=== PATIENT | female | born 1980 | race Caucasian/White ===

== ENCOUNTER 2017-07-14 02:44 | Emergency (ER) | payer SELFPAY ==
[2017-07-14] MEDS ORDERED: Doxycycline 100 MG Cap PO ONE (03:19)
--- NOTE | 2017-07-14 03:20 | EDM.PDOC ---
ED HPI GENERAL MEDICAL PROBLEM - General Chief Complaint: Bite:Animal, Insect Stated Complaint: poss spider bite Time Seen by Provider: 07/14/17 03:01 Source of Information: Reports: Patient History Limitations: Reports: No Limitations - History of Present Illness INITIAL COMMENTS - FREE TEXT/NARRATIVE: The patient presents with pain, redness and swelling to the right lower leg. She thinks she may have gotten bit by a bug or spider a couple days ago. She has no fever or chills. She has no other symptoms. Onset: Gradual Duration: Day(s): (2) Location: Reports: Upper Extremity, Right Quality: Reports: Sharp Severity: Moderate Improves with: Reports: None Worsens with: Reports: None Associated Symptoms: Reports: No Other Symptoms Right Feet Pain Score (Numeric/FACES): 6 - Related Data Allergies Allergy/AdvReac Type Severity Reaction Status Date / Time No Known Allergies Allergy Verified 07/14/17 02:56 Home Meds: Home Meds Doxycycline [Vibramycin] 100 mg PO BID #20 cap 07/14/17 [Rx] Hydrocodone/Acetaminophen [Hydrocodon-Acetaminophen 5-325] 1 - 2 each PO Q6HR PRN #10 tablet 07/14/17 [Rx] Past Medical History - Past Health History Medical/Surgical History: Denies Medical/Surgical History HEENT History: Reports: Impaired Vision Other OB/BYN History: Ovarian cyst Other Musculoskeletal History: "bad knees" Psychiatric History: Reports: Addiction Social & Family History - Family History Family Medical History: Noncontributory - Tobacco Use Smoking Status *Q: Current Every Day Smoker Years of Tobacco use: 25 Packs/Tins Daily: 0.7 - Recreational Drug Use Recreational Drug Use: Yes Drug Use in Last 12 Months: Yes Recreational Drug Type: Reports: Methamphetamine ED ROS GENERAL - Review of Systems Review Of Systems: See Below Constitutional: Reports: No Symptoms HEENT: Reports: No Symptoms Respiratory: Reports: No Symptoms Cardiovascular: Reports: No Symptoms Endocrine: Reports: No Symptoms GI/Abdominal: Reports: No Symptoms : Reports: No Symptoms Musculoskeletal: Reports: Leg Pain ED EXAM, ANIMAL BITE - Physical Exam Exam: See Below Exam Limited By: No Limitations General Appearance: Alert, No Apparent Distress Ears: Normal External Exam Nose: Normal Inspection Head: Atraumatic, Normocephalic Neck: Normal Inspection Respiratory/Chest: No Respiratory Distress Extremities: Other (Erythema, edema and pain upon palpation to the right lower leg. Good sensation and pulses distally.) Course - Vital Signs Last Recorded V/S: Last Vital Signs Temp 98.0 F 07/14/17 02:54 Pulse 88 07/14/17 02:54 Resp 18 07/14/17 02:54 BP 132/78 07/14/17 02:54 Pulse Ox 100 07/14/17 02:54 - Re-Assessments/Exams Free Text/Narrative Re-Assessment/Exam: 07/14/17 03:17 I will give her a dose of doxycycline here and a prescription for more. Departure - Departure Time of Disposition: 03:20 Disposition: Home, Self-Care 01 Condition: Good Clinical Impression: Cellulitis Qualifiers: Site of cellulitis: extremity Site of cellulitis of extremity: lower extremity Laterality: right Qualified Code(s): L03.115 - Cellulitis of right lower limb - Discharge Information Prescriptions: Hydrocodone/Acetaminophen [Hydrocodon-Acetaminophen 5-325] 1 - 2 each PO Q6HR PRN #10 tablet PRN Reason: Pain Doxycycline [Vibramycin] 100 mg PO BID #20 cap Referrals: PCP,None [Primary Care Provider] - Bushra Morocho PA [Physician Logistics Engineer] - Additional Instructions: Take the doxycycline 2 times per day for 10 days. Elevate your leg as much as you can for 2 days. Take the hydrocodone as needed for pain. Put warm compresses on your leg 2 to 3 times per day. Please return if you are worse.
== END 2017-07-14 03:28 | disposition home or self-care (01) ==
LOC: JD.ED 02:44
DX: L03.115 Cellulitis of right lower limb (principal); F17.210 Nicotine dependence, cigarettes, uncomplicated
CPT/HCPCS: 99283; A9270

== ENCOUNTER 2018-04-19 12:11 | Emergency (ER) | payer SELFPAY ==
[2018-04-19] MEDS ORDERED: Lidocaine 1% 10 ML MDV INJECT ONE (12:33)
--- NOTE | 2018-04-19 12:41 | EDM.PDOC ---
ED HPI GENERAL MEDICAL PROBLEM - General Chief Complaint: Laceration Stated Complaint: FINGER LAC Time Seen by Provider: 04/19/18 12:20 Source of Information: Reports: Patient, RN Notes Reviewed History Limitations: Reports: No Limitations - History of Present Illness INITIAL COMMENTS - FREE TEXT/NARRATIVE: Patient is a 37-year-old female who presents to the ED for evaluation of a laceration to her left pointer finger. She states that she was cutting vegetables at home when she accidentally sliced her finger. She states this was approximately 15 minutes before coming to the ER. She states that she is right-handed. She is up-to-date on her tetanus booster. She does not believe that she cut the nail at all. The laceration is around 1.5 cm in length and is curvilinear. She does not have any med allergies that she is aware of. Bleeding was controlled at time of initial presentation. left 2nd finger Pain Score (Numeric/FACES): 9 - Related Data Allergies Allergy/AdvReac Type Severity Reaction Status Date / Time No Known Allergies Allergy Verified 04/19/18 12:23 Home Meds: Home Meds . 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 Skin: Reports: Wound (SEE HPI) Neurological: Denies: Numbness, Tingling ED EXAM, SKIN/RASH Exam: See Below Text/Narrative:: exam limited to Left upper extremity Exam Limited By: No Limitations General Appearance: Alert, WD/WN, No Apparent Distress Ears: Normal External Exam Nose: Normal Inspection Throat/Mouth: Normal Inspection Head: Atraumatic Neck: Normal Inspection Respiratory/Chest: No Respiratory Distress, Lungs Clear, Normal Breath Sounds, No Accessory Muscle Use, Chest Non-Tender Cardiovascular: Normal Peripheral Pulses, Regular Rate, Rhythm, No Murmur Extremities: Normal Inspection, Normal Capillary Refill Neurological: Alert, Oriented, Normal Cognition, No Motor/Sensory Deficits Psychiatric: Normal Affect, Normal Mood Skin: Warm, Dry, Wound/Incision (1.5 cm curvilinear laceration to the distal, lateral left pointer finger. This is over the finger pad.) Location, Skin: Upper Extremity, Left, Palms (1.5 cm curvilinear laceration to the lateral aspect of left pointer finger.) ED SKIN PROCEDURES - Laceration/Wound Repair Left Lateral Distal Digit - 2nd (Index) Lac/Wound length In cm: 1.5 Appearance: Superficial, Linear (Curvilinear), Clean Distal NVT: Neuro & Vascular Intact Anesthetic Type: Local Local Anesthesia - Lidocaine (Xylocaine): 1% Plain Local Anesthetic Volume: 5cc Skin Prep: Chlorhexidine (Hibiciens), Saline Saline Irrigation (cc's): 250 (copious) Exploration/Debridement/Repair: Wound Explored, In a Bloodless Field, Explored to Base, No Foreign Material Found Closed with: Sutures Suture Size: other (5.0) # of Sutures: 7 Suture Type: Prolene, Interrupted, Simple Sterile Dressing Applied: Nurse Tetanus Status Addressed: Yes Complications: No Course - Vital Signs Last Recorded V/S: Last Vital Signs Temp 98.1 F 04/19/18 12:20 Pulse 82 04/19/18 12:20 Resp 18 04/19/18 12:20 BP 122/78 04/19/18 12:20 Pulse Ox 100 04/19/18 12:20 - Orders/Labs/Meds Meds: Medications Discontinued Medications Generic Name Dose Route Start Last Admin Trade Name Joel PRN Reason Stop Dose Admin Lidocaine HCl 10 ml 04/19/18 12:33 04/19/18 12:44 Xylocaine 1% INJECT 04/19/18 12:34 10 ml ONETIME ONE Administration - Re-Assessments/Exams Free Text/Narrative Re-Assessment/Exam: 04/19/18 12:44 Patient presents to the ED for evaluation of a laceration to her left pointer finger. Will need to be closed with sutures, I have ordered a lidocaine for repair. Will use 5.0, this did not appear to have caught the fingernail at all. She is neurovascularly intact. Departure - Departure Time of Disposition: 13:12 Disposition: Home, Self-Care 01 Condition: Good, Fair Clinical Impression: Laceration of left index finger Qualifiers: Encounter type: initial encounter Damage to nail status: without damage Foreign body presence: without foreign body Qualified Code(s): S61.211A - Laceration without foreign body of left index finger without damage to nail, initial encounter - Discharge Information *PRESCRIPTION DRUG MONITORING PROGRAM REVIEWED*: No *COPY OF PRESCRIPTION DRUG MONITORING REPORT IN PATIENT BERNY: No Instructions: Stitches, Keith, or Adhesive Wound Closure, [id number] Referrals: PCP,None [Primary Care Provider] - Forms: ED Department Discharge, ED Return to Work/School Form Additional Instructions: You have been evaluated in the ED for your laceration. Sutures will need to stay in for 10 days (04/29/18). You may return to the ED or clinic for removal. Please keep this area clean and dry, you may cleanse with regular soap and water. No vigorous scrubbing. If your job requires you to have a hand submersed in water, recommend having it bandaged and gloved at all times. Please return to ED if your symptoms change or worsen.
== END 2018-04-19 13:28 | disposition home or self-care (01) ==
LOC: JD.ED 12:11
DX: S61.211A Laceration without foreign body of left index finger without damage to nail, initial encounter (principal); W45.8XXA Other foreign body or object entering through skin, initial encounter
CPT/HCPCS: 12001; 99282; J2001

== ENCOUNTER 2018-11-16 06:15 | Emergency (ER) | payer SELFPAY ==
[2018-11-16] MEDS ORDERED: Sodium Chloride 0.9% 10 ML Syringe FLUSH PRN (06:35)
[2018-11-16] MEDS ORDERED: HYDROmorphone 0.5 MG/0.5 ML Syringe IVPUSH ONE ×2 (06:36→07:04)
[2018-11-16] MEDS ORDERED: Ondansetron 4 MG/2 ML SDV IVPUSH ONE (06:36)
[2018-11-16] MEDS ORDERED: Sodium Chloride 0.9% 1,000 ML IV SCH (06:45)
--- NOTE | 2018-11-16 07:11 | EDM.PDOC ---
<Reji Torrez Madan - Last Filed: 11/16/18 07:27> ED HPI GENERAL MEDICAL PROBLEM - General Chief Complaint: Abdominal Pain Stated Complaint: STOMACH PAIN Time Seen by Provider: 11/16/18 06:30 Source of Information: Reports: Patient, RN Notes Reviewed - History of Present Illness INITIAL COMMENTS - FREE TEXT/NARRATIVE: 38-year-old female comes in with severe right back and flank discomfort. This started about 2 hours ago awakening her from sleep. [place] totally fine yesterday. She's never had anything like this before. The pain does not cross over to the left side. She has had some nausea and vomiting. No fever or chills. No voiding symptomatology. No chest pain or difficulty breathing. Right Abdomen Pain Score (Numeric/FACES): 10 - Related Data Allergies Allergy/AdvReac Type Severity Reaction Status Date / Time No Known Allergies Allergy Verified 11/16/18 06:27 Home Meds: Home Meds Ondansetron [Zofran] 4 mg BUCCAL Q6H PRN #5 tab 11/16/18 [Rx] oxyCODONE HCl/Acetaminophen [Percocet 5-325 mg Tablet] 1 - 2 each PO Q4H PRN # 16 tablet 11/16/18 [Rx] Past Medical History - Past Health History Medical/Surgical History: Denies Medical/Surgical History HEENT History: Reports: Impaired Vision Cardiovascular History: Reports: None Respiratory History: Reports: None Gastrointestinal History: Reports: None Genitourinary History: Reports: None 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 Other Musculoskeletal History: "bad knees" Neurological History: Reports: None Psychiatric History: Reports: Addiction Endocrine/Metabolic History: Reports: None Hematologic History: Reports: None Immunologic History: Reports: None Oncologic (Cancer) History: Reports: None Dermatologic History: Reports: Cellulitis - Infectious Disease History Infectious Disease History: Reports: None - Past Surgical History Head Surgeries/Procedures: Reports: None Social & Family History - Family History Family Medical History: Noncontributory - Tobacco Use Smoking Status *Q: Current Every Day Smoker Years of Tobacco use: 20 Packs/Tins Daily: 0.5 - Caffeine Use Caffeine Use: Reports: Soda - Recreational Drug Use Recreational Drug Use: Yes ED ROS GENERAL - Review of Systems Review Of Systems: See Below Constitutional: Denies: Fever, Chills, Diaphoresis HEENT: Reports: No Symptoms Respiratory: Denies: Shortness of Breath Cardiovascular: Denies: Chest Pain GI/Abdominal: Reports: Abdominal Pain (Right flank), Nausea, Vomiting. Denies: Diarrhea : Reports: No Symptoms Musculoskeletal: Reports: Back Pain (Right-sided) Skin: Reports: No Symptoms Neurological: Reports: No Symptoms ED EXAM, RENAL/ - Physical Exam Exam: See Below General Appearance: Alert, Severe Distress Eye Exam: Bilateral Eye: PERRL Throat/Mouth: Normal Inspection Head: Atraumatic Neck: Supple Respiratory/Chest: No Respiratory Distress, Lungs Clear, Normal Breath Sounds Cardiovascular: Regular Rate, Rhythm GI/Abdominal: Soft, Other (Mild tenderness right flank) Back Exam: CVA Tenderness (R) Extremities: Normal Inspection Neurological: Alert, Oriented, No Motor/Sensory Deficits Skin Exam: Warm, Dry, Normal Color Course - Vital Signs Last Recorded V/S: Last Vital Signs Temp 35.7 C 11/16/18 06:25 Pulse 59 L 11/16/18 06:25 Resp 18 11/16/18 06:25 BP 159/130 H 11/16/18 06:25 Pulse Ox 99 11/16/18 06:25 - Orders/Labs/Meds Orders: Active Orders 24 hr Category Date Time Status Peripheral IV Care [RC] . DIRECTED Care 11/16/18 06:36 Active Ketorolac [Toradol] Med 11/16/18 08:15 Active 30 mg IVPUSH ONETIME Sodium Chloride 0.9% [Normal Saline] 1,000 ml Med 11/16/18 06:45 Active IV ONETIME Sodium Chloride 0.9% [Saline Flush] Med 11/16/18 06:35 Active 10 ml FLUSH ASDIRECTED PRN Peripheral IV Insertion Adult [OM.PC] Stat Oth 11/16/18 06:35 Ordered Medication Orders Sodium Chloride (Normal Saline) 1,000 mls @ 999 mls/hr IV ONETIME CHAUNCEY Last Admin: 11/16/18 06:42 Dose: 999 mls/hr Ketorolac Tromethamine (Toradol) 30 mg IVPUSH ONETIME CHAUNCEY Last Admin: 11/16/18 08:17 Dose: 30 mg Sodium Chloride (Saline Flush) 10 ml FLUSH ASDIRECTED PRN PRN Reason: Keep Vein Open Last Admin: 11/16/18 06:37 Dose: 10 ml Labs: Laboratory Tests 11/16/18 11/16/18 Range/Units 07:45 07:51 Urine Color Yellow (Yellow) Urine Appearance Cloudy H (Clear) Urine pH 5.5 (5.0-8.0) Ur Specific [place] > or = 1.030 (1.005-1.030) Urine Protein 1+ H (Negative) Urine Glucose (UA) Negative (Negative) Urine Ketones Negative (Negative) Urine Occult Blood 1+ H (Negative) Urine Nitrite Negative (Negative) Urine Bilirubin Negative (Negative) Urine Urobilinogen 0.2 (0.2-1.0) Ur Leukocyte Esterase 1+ H (Negative) Urine RBC 10-20 H (0-5) /hpf Urine WBC 20-30 H (0-5) /hpf Ur Epithelial Cells 20-30 H (0-5) /hpf Urine Bacteria Moderate H (FEW) /hpf Urine Mucus Many H (FEW) /hpf Urine Opiates Screen Presumptive positive H (ADDALR=133) Ur Buprenorphine Scrn Negative (CUTOFF=10) Ur Oxycodone Screen Negative (LCW0ZY=200) Urine Methadone Screen Negative (KGXDZJ=975) Ur Propoxyphene Screen Negative (HLZAWD=049) Ur Barbiturates Screen Negative (ZXRAWN=977) Ur Tricyclics Screen Negative (YAQVKT=567) Ur Phencyclidine Scrn Negative (CUTOFF=25) Ur Amphetamine Screen Presumptive positive H (OBUQXG=666) U Methamphetamines Scrn Presumptive positive H (PLLIAC=851) U Benzodiazepines Scrn Negative (XIMFTO=558) U Cocaine Metab Screen Negative (VEDUNE=463) U Marijuana (THC) Screen Negative (CUTOFF=50) Meds: Medications Generic Name Dose Route Start Last Admin Trade Name Freq PRN Reason Stop Dose Admin Sodium Chloride 1,000 mls @ 999 mls/hr 11/16/18 06:45 11/16/18 06:42 Normal Saline IV 999 mls/hr ONETIME CHAUNCEY Administration Ketorolac Tromethamine 30 mg 11/16/18 08:15 11/16/18 08:17 Toradol IVPUSH 30 mg ONETIME CHAUNCEY Administration Sodium Chloride 10 ml 11/16/18 06:35 11/16/18 06:37 Saline Flush FLUSH 10 ml ASDIRECTED PRN Administration Keep Vein Open Discontinued Medications Generic Name Dose Route Start Last Admin Trade Name Freq PRN Reason Stop Dose Admin Hydromorphone HCl 0.5 mg 11/16/18 06:36 11/16/18 06:43 Dilaudid IVPUSH 11/16/18 06:37 0.5 mg ONETIME ONE Administration Hydromorphone HCl 0.5 mg 11/16/18 07:04 11/16/18 07:08 Dilaudid IVPUSH 11/16/18 07:05 0.5 mg ONETIME ONE Administration Hydromorphone HCl 1 mg 11/16/18 08:11 11/16/18 08:16 Dilaudid IVPUSH 11/16/18 08:12 1 mg ONETIME ONE Administration Ondansetron HCl 4 mg 11/16/18 06:36 11/16/18 06:42 Zofran IVPUSH 11/16/18 06:37 4 mg ONETIME ONE Administration - Re-Assessments/Exams Free Text/Narrative Re-Assessment/Exam: 11/16/18 07:27 Change of shift, will transfer care to Dr Monreal. Suspect she will have a stone. Getting her CT at this time. Departure - Departure Disposition: Home, Self-Care 01 Clinical Impression: Renal colic on left side, Flank pain - Discharge Information Prescriptions: Ondansetron [Zofran] 4 mg BUCCAL Q6H PRN #5 tab PRN Reason: nausea or vomiting oxyCODONE HCl/Acetaminophen [Percocet 5-325 mg Tablet] 1 - 2 each PO Q4H PRN # 16 tablet PRN Reason: pain relief. Instructions: Renal Colic, [id number], Kidney Stones, [id number] Referrals: PCP,None [Primary Care Provider] - Forms: ED Department Discharge Additional Instructions: Evaluation the emergency room this morning in regards to acute onset of severe right flank pain that awoke him from sleep. Can confirms this is a kidney stone and it is approximate 1.8 mm and is down close to the urinary bladder. Has been another incident have to go before would enter the bladder which time pain goes away completely. Take plenty of fluids today. Activity as tolerated. Pain medication is to be Percocet tabs 5/325 2 tablets with Zofran 4 mg under the tongue at onset of pain when it returns. When the stone stops moving the pain can go away and never know when his going to come back. Strain the urine until stone is identified to have passed. No other stones were noted in the kidney tissues at this time to be problematic in the future. - My Orders Last 24 Hours: My Active Orders 11/16/18 08:15 Ketorolac [Toradol] 30 mg IVPUSH ONETIME - Assessment/Plan Last 24 Hours: My Active Orders 11/16/18 08:15 Ketorolac [Toradol] 30 mg IVPUSH ONETIME <Zhang Monreal - Last Filed: 11/16/18 09:00> Course - Orders/Labs/Meds Labs: Laboratory Tests 11/16/18 11/16/18 Range/Units 07:45 07:51 Urine Color Yellow (Yellow) Urine Appearance Cloudy H (Clear) Urine pH 5.5 (5.0-8.0) Ur Specific [place] > or = 1.030 (1.005-1.030) Urine Protein 1+ H (Negative) Urine Glucose (UA) Negative (Negative) Urine Ketones Negative (Negative) Urine Occult Blood 1+ H (Negative) Urine Nitrite Negative (Negative) Urine Bilirubin Negative (Negative) Urine Urobilinogen 0.2 (0.2-1.0) Ur Leukocyte Esterase 1+ H (Negative) Urine RBC 10-20 H (0-5) /hpf Urine WBC 20-30 H (0-5) /hpf Ur Epithelial Cells 20-30 H (0-5) /hpf Urine Bacteria Moderate H (FEW) /hpf Urine Mucus Many H (FEW) /hpf Urine Opiates Screen Presumptive positive H (ZJRCTO=022) Ur Buprenorphine Scrn Negative (CUTOFF=10) Ur Oxycodone Screen Negative (THL0IA=402) Urine Methadone Screen Negative (DEDZOU=251) Ur Propoxyphene Screen Negative (HJAARB=407) Ur Barbiturates Screen Negative (QXLZLW=264) Ur Tricyclics Screen Negative (JJWYAA=880) Ur Phencyclidine Scrn Negative (CUTOFF=25) Ur Amphetamine Screen Presumptive positive H (EPIZSH=936) U Methamphetamines Scrn Presumptive positive H (JXVRLJ=256) U Benzodiazepines Scrn Negative (IPABVB=392) U Cocaine Metab Screen Negative (PEMITU=760) U Marijuana (THC) Screen Negative (CUTOFF=50) - Re-Assessments/Exams Free Text/Narrative Re-Assessment/Exam: 11/16/18 07:[address] Chirinos at change of shift. CT scan has now been completed of the abdomen per renal protocol. Visualized portions of the lower lung margins are clear. Liver appears homogeneous without any intraductal dilatation. Gallbladder is present without any obvious calcified gallstones. Pancreas is normal. Stomach is fluid/food filled. Spleen is normal. Right kidney appears to be slightly enlarged. The proximal right ureter also appears to be mildly dilated There appears to be 1.8 mm stone at the UVJ. There is increased stool throughout the colon. No free fluid in the pelvis. 11/16/18 08:11 patient is still writhing in pain. Primarily right flank but she states there is some radiation of pain towards the right groin. Will repeat Dilaudid 1 mg IV and Toradol 30 mg IV for pain relief. 11/16/18 08:53 etiologies report is now available. He agrees with a 1.8 mm obstructing stone within the distal right ureter at the UVJ. Minimal fat- containing umbilical hernia is an incidental note. Patient is now much improved in terms of pain. She'll be discharged home with a urine strainer. Likely going to pass this stone within the next day or 2. 16 tablets 5/325 mg. Zofran 4 mg sublingual every 4-6 hours needed for nausea relief. Departure - Departure Time of Disposition: 09:00 - Discharge Information *PRESCRIPTION DRUG MONITORING PROGRAM REVIEWED*: Not Applicable *COPY OF PRESCRIPTION DRUG MONITORING REPORT IN PATIENT BERNY: Not Applicable - My Orders Last 24 Hours: My Active Orders 11/16/18 08:15 Ketorolac [Toradol] 30 mg IVPUSH ONETIME - Assessment/Plan Last 24 Hours: My Active Orders 11/16/18 08:15 Ketorolac [Toradol] 30 mg IVPUSH ONETIME
[2018-11-16] MEDS ORDERED: HYDROmorphone 1 MG/ML Syringe IVPUSH ONE (08:11)
--- NOTE | 2018-11-16 08:13 | CT ---
CT abdomen and pelvis Technique: Multiple axial sections were obtained from above the dome of the diaphragm inferiorly through the pubic symphysis. Intravenous and oral contrast was not utilized. Study has been performed as a ureteral stone protocol. Comparison: No previous study. Findings: Small 1.8 mm calcification is seen within the distal right ureter at the UVJ. This is felt compatible with an obstructing calculus as the right ureter is prominent in size. No other abnormal calcifications are seen along the course of the ureters. No abnormal calcifications are seen within the kidneys. Visualized lung bases show nothing acute. Noncontrast appearance of the liver and spleen appear within normal limits. Adrenal glands show no nodule. Pancreas is within normal limits. Aorta shows no aneurysm. Gallbladder contains no calcified gallstones. No retroperitoneal adenopathy or mesenteric abnormalities are seen. Minimal fat-containing umbilical hernia is noted. No pelvic mass or adenopathy is identified. Appendix felt to be visualized and is normal in size. Bone window settings were reviewed which show no acute osseous abnormality. Impression: 1. 1.8 mm obstructing stone within the distal right ureter at the UVJ. 2. Minimal fat-containing umbilical hernia as an incidental note. 3. Other normal findings as noted above. Diagnostic code #3
[2018-11-16] MEDS ORDERED: Ketorolac 30 MG/ML SDV IVPUSH SCH (08:15)
== END 2018-11-16 09:32 | disposition home or self-care (01) ==
LOC: JD.ED 06:15
DX: N20.0 Calculus of kidney (principal); F17.210 Nicotine dependence, cigarettes, uncomplicated
CPT/HCPCS: 74176; 80306; 81001; 96361; 96374; 96375; 96376; 99284; J1170; J1885; J2405; J7040

== ENCOUNTER 2019-09-17 23:45 | Emergency (ER) | payer SELFPAY ==
--- NOTE | 2019-09-18 00:24 | EDM.PDOC ---
ED HPI GENERAL MEDICAL PROBLEM - General Chief Complaint: Lower Extremity Injury/Pain Stated Complaint: SWOLLEN/RED/TENDER RIGHT LEG Time Seen by Provider: 09/17/19 23:58 Source of Information: Reports: Patient History Limitations: Reports: No Limitations - History of Present Illness INITIAL COMMENTS - FREE TEXT/NARRATIVE: This is a 39-year-old female. About 2 days ago while at work she noted that her right lower extremity was itching. She pulled up her pant legs to look she noted some redness around her ankle and her lower leg. It seems to have only gotten worse and she comes to the ER for evaluation. She does not see any place that she got bit by an insect or an abrasion or anything to suggest an infection. No fever and no chills. But due to the increasing redness and swelling in her right lower leg she comes to the ER for evaluation. 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 Other Musculoskeletal History: "bad knees" Neurological History: Reports: None Psychiatric History: Reports: Addiction Endocrine/Metabolic History: Reports: None Hematologic History: Reports: None Immunologic History: Reports: None Oncologic (Cancer) History: Reports: None Dermatologic History: Reports: Cellulitis - Infectious Disease History Infectious Disease History: Reports: None - Past Surgical History Head Surgeries/Procedures: Reports: None HEENT Surgical History: Reports: Oral Surgery Social & Family History - Family History Family Medical History: Noncontributory - Tobacco Use Smoking Status *Q: Current Every Day Smoker Years of Tobacco use: 24 Packs/Tins Daily: 0.5 - Caffeine Use Caffeine Use: Reports: Coffee, Energy Drinks, Soda, Tea - Recreational Drug Use Recreational Drug Use: Yes Drug Use in Last 12 Months: Yes Recreational Drug Type: Reports: Methamphetamine Recreational Drug Last Use: 1 week ago - 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 Review of Systems - Review of Systems Review Of Systems: See Below Constitutional: Denies: Chills, Fever Eyes: Reports: No Symptoms Ears: Reports: No Symptoms Nose: Reports: No Symptoms Mouth/Throat: Reports: No Symptoms Respiratory: Reports: No Symptoms Cardiovascular: Reports: No Symptoms GI/Abdominal: Reports: No Symptoms Genitourinary: Reports: No Symptoms Musculoskeletal: Reports: Leg Pain Skin: Reports: Rash, Erythema, Other (Lower extremity edema) Neurological: Reports: No Symptoms Psychiatric: Reports: No Symptoms ED EXAM, GENERAL - Physical Exam Exam: See Below Exam Limited By: No Limitations General Appearance: Alert, WD/WN, No Apparent Distress Eye Exam: Bilateral Eye: Normal Inspection Ears: Normal External Exam Nose: Normal Inspection Throat/Mouth: Normal Voice, No Airway Compromise Head: Normocephalic Neck: Supple Respiratory/Chest: No Respiratory Distress Back Exam: Full Range of Motion Extremities: Normal Range of Motion, Other (Lower extremity shows a bright red rash and erythema and significant warmth differential circumferential around her right lower leg. Is not so much in her foot though her foot is swollen as well. She has 2+ pitting edema from about the mid right lower leg down and especially where she has the bright red rash I cannot see any focus where there might have been an abrasion or a bug bite. Neurovascular is intact in her 5 digits. The left lower extremity does not have any changes.) Neurological: Alert, Oriented Psychiatric: Normal Affect, Normal Mood Skin Exam: Warm, Dry Course - Vital Signs Last Recorded V/S: Last Vital Signs Temp 98.2 F 09/17/19 23:58 Pulse 96 09/17/19 23:58 Resp 20 09/17/19 23:58 BP 111/77 09/17/19 23:58 Pulse Ox 99 09/17/19 23:58 - Orders/Labs/Meds Orders: Active Orders 24 hr Category Date Time Status cefTRIAXone [Rocephin] 1 gm Med 09/18/19 01:45 Active Lidocaine 1% [Xylocaine 1%] 2.1 ml IM Q24H Medication Orders Ceftriaxone Sodium 1 gm/ (Lidocaine HCl 2.1 ml) 0 gm IM Q24H [facility] Labs: Laboratory Tests 09/18/19 09/18/19 Range/Units 00:32 00:32 WBC 7.45 (3.98-10.04) K/mm3 RBC 4.64 (3.98-5.22) M/mm3 Hgb 13.4 (11.2-15.7) gm/dl Hct 42.0 (34.1-44.9) % MCV 90.5 (79.4-94.8) fl MCH 28.9 (25.6-32.2) pg MCHC 31.9 L (32.2-35.5) g/dl RDW Std Deviation 45.1 (36.4-46.3) fL Plt Count 258 (182-369) K/mm3 MPV 9.8 (9.4-12.3) fl Neut % (Auto) 64.5 (34.0-71.1) % Lymph % (Auto) 20.9 (19.3-51.7) % [place] % (Auto) 11.8 (4.7-12.5) % Eos % (Auto) 2.1 (0.7-5.8) Baso % (Auto) 0.4 (0.1-1.2) % Neut # (Auto) 4.80 (1.56-6.13) K/mm3 Lymph # (Auto) 1.56 (1.18-3.74) K/mm3 [place] # (Auto) 0.88 H (0.24-0.36) K/mm3 Eos # (Auto) 0.16 (0.04-0.36) K/mm3 Baso # (Auto) 0.03 (0.01-0.08) K/mm3 C-Reactive Protein 2.1 H* (<1.0) mg/dL Meds: Medications Generic Name Dose Route Start Last Admin Trade Name Freq PRN Reason Stop Dose Admin Ceftriaxone Sodium 1 gm/ 0 gm 09/18/19 01:45 Lidocaine HCl 2.1 ml IM Q24H [facility] - Re-Assessments/Exams Free Text/Narrative Re-Assessment/Exam: 09/18/19 01:50 Spoke to the patient regarding her lab results. Her white count is not elevated though her C-reactive protein is. It looks like a superficial cellulitis that is not gone systemic. I will give her a shot of Rocephin and put her on Keflex. I am going to give her off work several days so she can prop that leg up and get some of the swelling to go down. She needs to follow-up with her family doctor this coming week for recheck. Departure - Departure Time of Disposition: 01:51 Disposition: Home, Self-Care 01 Condition: Fair Clinical Impression: Cellulitis of right lower leg - Discharge Information *PRESCRIPTION DRUG MONITORING PROGRAM REVIEWED*: Not Applicable *COPY OF PRESCRIPTION DRUG MONITORING REPORT IN PATIENT BERNY: Not Applicable Prescriptions: cephALEXin [Keflex] 500 mg PO Q8H #30 cap Instructions: Cellulitis, Adult, [id number] Referrals: PCP,None [Primary Care Provider] - Forms: ED Department Discharge, ED Return to Work/School Form Additional Instructions: Use a cool compress but not ice to your lower leg to help with the soreness, take Tylenol or ibuprofen as needed for the soreness, start get your antibiotics filled tomorrow and start taking them tomorrow evening, you might consider some probiotics when you take your antibiotics you do not develop diarrhea, keep that leg elevated as much as possible over the next several days to help with the swelling, follow-up with your family doctor this week for recheck, return to the ER if needed Sepsis Event Note (ED) - Evaluation Sepsis Screening Result: No Definite Risk - Focused Exam Vital Signs: Vital Signs Temp Pulse Resp BP Pulse Ox 09/17/19 23:58 98.2 F 96 20 111/77 99 - My Orders Last 24 Hours: My Active Orders 09/18/19 01:45 cefTRIAXone [Rocephin] 1 gm Lidocaine 1% [Xylocaine 1%] 2.1 ml IM Q24H - Assessment/Plan Last 24 Hours: My Active Orders 09/18/19 01:45 cefTRIAXone [Rocephin] 1 gm Lidocaine 1% [Xylocaine 1%] 2.1 ml IM Q24H
[2019-09-18] MEDS ORDERED: cefTRIAXone 1 GM, Lidocaine 1% 2.1 ML IM SCH ×2 (01:45)
== END 2019-09-18 02:18 | disposition home or self-care (01) ==
LOC: JD.ED 23:45
DX: L03.115 Cellulitis of right lower limb (principal); F17.210 Nicotine dependence, cigarettes, uncomplicated
CPT/HCPCS: 36415; 85025; 86140; 96372; 99283; J0696; J2001

== ENCOUNTER 2020-02-25 13:44 | Emergency (ER) | payer SELFPAY ==
--- NOTE | 2020-02-25 14:26 | EDM.PDOC ---
ED HPI GENERAL MEDICAL PROBLEM - General Chief Complaint: Skin Complaint Stated Complaint: R LEG SKIN COMPLAINT Time Seen by Provider: 02/25/20 14:14 Source of Information: Reports: Patient, Old Records, RN Notes Reviewed History Limitations: Reports: No Limitations - History of Present Illness INITIAL COMMENTS - FREE TEXT/NARRATIVE: Patient is a 39-year-old female who presents to the ED for the evaluation of her right lower leg skin complaint. Patient notes that last night, she developed some redness, itchiness to her right lower extremity. She notes that it is not tender, she has been trying to elevate the area to relieve some of the swelling. She notes that she has had issues with this in the past regarding possible cellulitis and has required antibiotics. She thinks her symptoms are similar to when she had cellulitis and required antibiotics. There is some slight edema noted to her lower leg, but nothing into her foot. She notes that this is not tender. Other than this she has had no fevers or chills, cough or shortness of breath. She is notes that she did have to miss work today due to her leg complaint. 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 Other Musculoskeletal History: "bad knees" Neurological History: Reports: None Psychiatric History: Reports: Addiction Endocrine/Metabolic History: Reports: None Hematologic History: Reports: None Immunologic History: Reports: None Oncologic (Cancer) History: Reports: None Dermatologic History: Reports: Cellulitis - Infectious Disease History Infectious Disease History: Reports: None - Past Surgical History Head Surgeries/Procedures: Reports: None HEENT Surgical History: Reports: Oral Surgery Social & Family History - Family History Family Medical History: No Pertinent Family History - Tobacco Use Tobacco Use Status *Q: Current Every Day Tobacco User Years of Tobacco use: 26 Packs/Tins Daily: 0.5 - Caffeine Use Caffeine Use: Reports: Coffee, Energy Drinks, Soda, Tea ED ROS GENERAL - Review of Systems Review Of Systems: Comprehensive ROS is negative, except as noted in HPI. ED EXAM, SKIN/RASH Exam: See Below Exam Limited By: No Limitations General Appearance: Alert, WD/WN, No Apparent Distress Respiratory/Chest: No Respiratory Distress, Lungs Clear, Normal Breath Sounds, No Accessory Muscle Use, Chest Non-Tender Cardiovascular: Normal Peripheral Pulses, Regular Rate, Rhythm, No Murmur Peripheral Pulses: 2+: Radial (L), Radial (R) Extremities: Normal Range of Motion, Normal Capillary Refill, Increased Warmth (to right lateral lower leg, the area is roughly 10 x 8 cm, warm to touch and erythematous) Neurological: Alert, Oriented, Normal Cognition, No Motor/Sensory Deficits Psychiatric: Normal Affect, Normal Mood Skin: Warm, Dry, Intact, No Rash, Increased Warmth (see extremity assessment for futher detail) Location, Skin: Lower Extremity, Right Course - Vital Signs Last Recorded V/S: Last Vital Signs Temp 98.8 F 02/25/20 13:51 Pulse 88 02/25/20 13:51 Resp 16 02/25/20 13:51 BP 111/73 02/25/20 13:51 Pulse Ox 100 02/25/20 13:51 - Re-Assessments/Exams Free Text/Narrative Re-Assessment/Exam: 02/25/20 14:29 Patient presents to the ED for the evaluation of her right lower extremity skin complaint. This is most likely consistent with cellulitis in nature, patient be started on Keflex and provided with a work note. She will be directed follow- up in clinic next week if things not getting much better. Patient verbalized understanding. Departure - Departure Time of Disposition: 14:24 Disposition: Home, Self-Care 01 Condition: Good Clinical Impression: Cellulitis of right lower leg - Discharge Information *PRESCRIPTION DRUG MONITORING PROGRAM REVIEWED*: No *COPY OF PRESCRIPTION DRUG MONITORING REPORT IN PATIENT BERNY: No Prescriptions: cephALEXin [Keflex] 500 mg PO Q8H #30 cap Instructions: Cellulitis, Adult, [id number] Referrals: PCP,None [Primary Care Provider] - Forms: ED Department Discharge, ED Return to Work/School Form Additional Instructions: You were evaluated in the ER today regarding a suspected skin infection. It does appear that you have a cellulitis. You were given an antibiotic, cephalexin or Keflex please take as prescribed until the course is done or told otherwise by different provider. Please note that this antibiotic will take at least 48 hours to start working appropriately. You may try to use heat/ice packs to the area to help reduce pain/swelling. You may take 500 mg Tylenol or 600 mg ibuprofen every 6 hours as needed for further pain relief. Do not exceed 4000 mg Tylenol or 3200 mg ibuprofen in a 24-hour time span. Please return to the ER at any time if your symptoms change or worsen. Sepsis Event Note (ED) - Evaluation Sepsis Screening Result: No Definite Risk - Focused Exam Vital Signs: Vital Signs Temp Pulse Resp BP Pulse Ox 02/25/20 13:51 98.8 F 88 16 111/73 100
== END 2020-02-25 14:30 | disposition home or self-care (01) ==
LOC: JD.ED 13:44
DX: L03.115 Cellulitis of right lower limb (principal); F17.210 Nicotine dependence, cigarettes, uncomplicated
CPT/HCPCS: 99283

== ENCOUNTER 2021-12-20 08:18 | Emergency (ER) | payer MEDICAID ==
[2021-12-20] MEDS ORDERED: Ketorolac 60 MG/2 ML SDV IM ONE (08:56)
[2021-12-20] MEDS ORDERED: Acetaminophen 325 MG Tab PO ONE (08:56)
== END 2021-12-20 12:18 | disposition home or self-care (01) ==
LOC: JD.ED 08:18
DX: S83.92XA Sprain of unspecified site of left knee, initial encounter (principal); F17.210 Nicotine dependence, cigarettes, uncomplicated; X50.1XXA Overexertion from prolonged static or awkward postures, initial encounter; Y92.69 Other specified industrial and construction area as the place of occurrence of the external cause
CPT/HCPCS: 73564; 96372; 99283; A9270; J1885

== ENCOUNTER 2022-04-26 21:30 | Emergency (ER) | payer MEDICAID | END 2022-04-26 23:46 | disposition home or self-care (01) | LOC: JD.ED 21:30 | DX: R82.5 Elevated urine levels of drugs, medicaments and biological substances (principal); Z72.0 Tobacco use | CPT/HCPCS: 80306; 99282; 99284 ==